=== PATIENT | female | born 1945 | race Caucasian/White ===

== ENCOUNTER 2021-11-02 18:37 | Emergency (ER) | payer MEDICARE ==
[~2021-11-02 18:37] MED LIST: ALLEGRA ALLERG180 MG PO; ASPIRIN CHEWABL81 MG PO; ATARAX25 MG PO; BYSTOLIC5 M1 PO; BYSTOLIC5 MG PO; CENTRUM SILVER1 EAC1 PO; COREG 6.25MG6.25 MG PO; COUMADIN5 MG PO; CRESTOR10 MG PO; D3-20002000 UNIT PO; DIFLUCAN 100MG100 MG PO; DIGITEK250 MCG PO; ESCITALOPRAM OX10 MG PO; KLOR-CON M2020 MEQ PO; LASIX40 MG PO; LOVAZA1 GM PO; LOVENOX100 MG/1 M SC; MIRAPEX0.25 MG PO; OMEGA 3 500 SO1 EACH PO; PREDNISONE 20MG20 MG PO; PROAIR HFA8.5 GM INH; SINGULAIR10 MG PO; SPIRIVA 185 PUFFS/IN INH; TAMIFLU75 MG PO; TUSSIONEX PENN115 ML PO; ZANTAC150 MG PO
[2021-11-02 19:35] LABS: INR 1.59 (0.9-1.2); PROTHROMBIN TIME 18.4 SECONDS (11.9-13.9)
== END 2021-11-02 20:11 | disposition home or self-care (01) ==
LOC: FER 18:37
PROVIDERS: Physician Assistant
DX: Z76.0 Encounter for issue of repeat prescription (principal)
CPT/HCPCS: 36415; 85610; 99283